=== PATIENT | male | born 2005 | race African-American/Black ===

== ENCOUNTER 2024-06-23 15:45 | Emergency (ER) | payer OTHER ==
[~2024-06-23] VITALS: Ht 177.8 cm; Wt 92.8 kg
[2024-06-23 15:49] VITALS: BP 129/76; TEMP 98.7; O2SAT 100
== END 2024-06-23 18:06 | disposition home or self-care (01) ==
LOC: M ED 15:45
DX: G90.09 Other idiopathic peripheral autonomic neuropathy (principal); Z91.013 Allergy to seafood